=== PATIENT | male | born 1930 | race Caucasian/White ===

== ENCOUNTER 2017-02-20 23:33 | Emergency (ER) | payer OTHER, MEDICARE ==
--- NOTE | 2017-02-21 00:43 | ER Document Report ---
ED Fall - General Chief Complaint: Fall Stated Complaint: FALL, UNK INJURY Time Seen by Provider: 02/21/17 00:12 Mode of Arrival: Stretcher Information source: Outside Facility Records TRAVEL OUTSIDE OF THE [place] IN LAST 30 DAYS: No - HPI Patient complains to provider of: Fall from wheelchair Occurred: Just prior to arrival Where: Group Home Context: Slipped Associated symptoms: None Location of injury/pain: Buttocks Quality of pain: No pain Notes: Patient is an 87-year-old male sent from the local care home for complaints from slip and fall from wheelchair onto buttocks, staff from the care home report there was no head injury, no loss of consciousness, patient has a history of dementia and cannot provide any further information but denies any non-my evaluation - Related data Allergies/Adverse Reactions: No Known Allergies Allergy (Verified 04/05/16 12:49) Past Medical History - General Information source: Patient, Outside Facility Records - Social History Smoking Status: Unknown if Ever Smoked Chew tobacco use (# tins/day): No Frequency of alcohol use: None Drug Abuse: None Family History: CAD - Past Medical History Cardiac Medical History: Reports: Hx Atrial Fibrillation, Hx Heart Attack, Hx Hypercholesterolemia, Hx Hypertension Denies: Hx Coronary Artery Disease Pulmonary Medical History: Reports: Hx Asthma, Hx COPD Denies: Hx Bronchitis, Hx Pneumonia Neurological Medical History: Denies: Hx Cerebrovascular Accident, Hx Seizures GI Medical History: Reports: Hx Gastroesophageal Reflux Disease Musculoskeltal Medical History: Reports Hx Arthritis Psychiatric Medical History: Reports: Hx Dementia Denies: Hx Depression Past Surgical History: Reports: Hx Abdominal Surgery - STENT ABD ANURYSM, Hx Vascular Surgery - Abdominal aortic aneurysm endovascular repair - Immunizations Hx Diphtheria, Pertussis, Tetanus Vaccination: Yes Hx Pneumococcal Vaccination: 07/01/12 Review of Systems - Review of Systems Constitutional: No symptoms reported EENT: No symptoms reported Cardiovascular: No symptoms reported Respiratory: No symptoms reported Gastrointestinal: No symptoms reported Genitourinary: No symptoms reported Male Genitourinary: No symptoms reported Musculoskeletal: See HPI Skin: No symptoms reported Hematologic/Lymphatic: No symptoms reported Neurological/Psychological: No symptoms reported -: Yes All other systems reviewed and negative Physical Exam - Vital signs Vitals: Temp Pulse BP Pulse Ox 98.4 F 51 L 122/58 L 96 02/20/17 23:41 02/20/17 23:41 02/20/17 23:41 02/20/17 23:41 - General General appearance: Alert In distress: None - HEENT Head: Normocephalic, Atraumatic Eyes: Normal Conjunctiva: Normal Extraocular movements intact: Yes Eyelashes: Normal Pupils: PERRL Mucous membranes: Dry Pharynx: Normal Neck: Normal - Respiratory Respiratory status: No respiratory distress Chest status: Nontender Breath sounds: Normal Chest palpation: Normal - Cardiovascular Rhythm: Regular Heart sounds: Normal auscultation Murmur: No - Abdominal Inspection: Normal Distension: No distension Bowel sounds: Normal Tenderness: Nontender Organomegaly: No organomegaly - Back Back: Normal, Nontender. No: Deformity/step-off, Wounds - Extremities General upper extremity: Normal inspection General lower extremity: Other - Contracted - Neurological Cognition: Confused [place] Coma Scale Eye Opening: To Voice Tu Coma Scale Verbal: Confused Tu Coma Scale Motor: Obeys Commands [place] Coma Scale Total: 13 - Skin Skin Temperature: Warm Skin Moisture: Dry Skin Color: Normal Course - Re-evaluation Re-evalutation: 02/21/17 00:43 No evidence of trauma on physical exam or imaging, patient discharged back to care home without incident 02/21/17 01:42 - Vital Signs Vital signs: Temp Pulse Resp BP Pulse Ox 98.4 F 51 L 122/58 L 96 02/21/17 01:10 02/20/17 23:41 02/20/17 23:41 02/21/17 01:10 - Diagnostic Test Radiology reviewed: Image reviewed, Reports reviewed Discharge - Discharge Clinical Impression: Fall from wheelchair Qualifiers: Encounter type: initial encounter Qualified Code(s): W05.0XXA - Fall from non- moving wheelchair, initial encounter Condition: Stable Disposition: HOME, SELF-CARE Instructions: Contusion ([facility]) Additional Instructions: Follow up with your primary care provider in one to 2 days. Return to the emergency room immediately if symptoms worsen or any additional concerns.
--- NOTE | 2017-02-21 01:18 | RADIOLOGY REPORT (SQ) ---
EXAM DESCRIPTION: SACRUM AND COCCYX COMPLETED DATE/TIME: 02/21/2017 12:35 am REASON FOR STUDY: fall COMPARISON: CR, L-spine, 04/08/2016 NUMBER OF VIEWS: Three views. TECHNIQUE: AP, lateral, and tilt views of the sacrum and coccyx. LIMITATIONS: None. FINDINGS: MINERALIZATION: Osteopenia. BONES: No acute fracture or dislocation. No worrisome bone lesions. SOFT TISSUES: No soft tissue swelling. No foreign body. OTHER: Surgical clips of the pelvis. Suture material of the right paracentral pelvis. Aorto bi-rolando c graft material measures 3.9 cm diameter on the left and 1.8 cm diameter on the right, stable compar ed with prior exam, 04/08/2016. IMPRESSION: No acute defect. TECHNICAL DOCUMENTATION: JOB ID: [id number] [employer]- All Rights Reserved
[2017-02-21 01:56] VITALS: BP 106/66
== END 2017-02-21 01:57 | disposition home or self-care (01) ==
LOC: ER 23:33
DX: Z04.3 Encounter for examination and observation following other accident (principal); W05.0XXA Fall from non-moving wheelchair, initial encounter; Y92.129 Unspecified place in nursing home as the place of occurrence of the external cause; F03.90 Unspecified dementia, unspecified severity, without behavioral disturbance, psychotic disturbance, mood disturbance, and anxiety; I25.2 Old myocardial infarction; I10 Essential (primary) hypertension; J44.9 Chronic obstructive pulmonary disease, unspecified
CPT/HCPCS: 72220; 99284

== ENCOUNTER 2017-07-07 12:09 | Emergency (ER) | payer OTHER, MEDICARE ==
[2017-07-08 03:06] LABS: ABSOLUTE EOSINOPHILS # (AUTO) 0.3 10^3/uL (0.0-0.6); ABSOLUTE MONOCYTES (AUTO) 0.4 10^3/uL (0.1-1.4); ABSOLUTE NEUT (AUTO) 5.6 10^3/uL (1.7-8.2); BASOPHILS % (AUTO) 0.5 % (0-2); EOSINOPHILS % (AUTO) 3.9 % (0-6); HEMATOCRIT 34.3 % (37.9-51.0); LYMPHOCYTES % (AUTO) 13.8 % (13-45); MEAN CORPUSCULAR HEMOGLOBIN 31.9 pg (27.0-33.4); MEAN CORPUSCULAR VOLUME 100 fl (80-97); PLATELET COUNT 105 10^3/uL (150-450); RED BLOOD COUNT 3.44 10^6/uL (4.35-5.55); RED CELL DISTRIBUTION WIDTH 15.7 % (11.5-14.0); SEGMENTED NEUTROPHILS % (AUTO) 75.8 % (42-78); TOTAL CELLS COUNTED % (AUTO) 100 %; WHITE BLOOD COUNT 7.4 10^3/uL (4.0-10.5)
[2017-07-08 03:48] LABS: APPEARANCE,URINE CLEAR; BILIRUBIN,URINE NEGATIVE (NEGATIVE); COLOR,URINE YELLOW; GLUCOSE, URINE NEGATIVE (NEGATIVE); KETONES,URINE NEGATIVE (NEGATIVE); LEUKOCYTE ESTERASE,URINE NEGATIVE (NEGATIVE); NITRITE,URINE NEGATIVE (NEGATIVE); PROTEIN,URINE NEGATIVE (NEGATIVE); URINE SPECIFIC GRAVITY 1.009; UROBILINOGEN,URINE NEGATIVE mg/dL (<2.0)
--- NOTE | 2017-07-08 09:48 | RADIOLOGY REPORT (SQ) ---
EXAM DESCRIPTION: CT ABD/PELVIS NO ORAL OR IV COMPLETED DATE/TIME: 07/08/2017 1:30 am REASON FOR STUDY: ABD PAIN COMPARISON: None. TECHNIQUE: CT scan of the abdomen and pelvis performed without intravenous or oral contrast. Images reviewed with lung, soft tissue, and bone windows. Reconstructed coronal and sagittal MPR images revi ewed. All images stored on PACS. All CT scanners at this facility use dose modulation, iterative reconstruction, and/or weight based d osing when appropriate to reduce radiation dose to as low as reasonably achievable (ALARA). [facility]: Dose Right [facility]: CareDose [facility]: Dose Right [facility]: Teradose 4D [facility]: [employer] RADIATION DOSE: mGy. LIMITATIONS: None. FINDINGS: LOWER CHEST: Calcified granuloma left lower lobe. No significant findings. No nodules or infiltrates. NON-CONTRASTED LIVER, SPLEEN, ADRENALS: Evaluation limited by lack of IV contrast. No identified sign ificant masses. Probable subcentimeter simple cyst right hepatic lobe series 3, image 13. PANCREAS: No masses. No peripancreatic inflammatory changes. GALLBLADDER: No identified stones by CT criteria. No inflammatory changes to suggest cholecystitis. RIGHT KIDNEY AND URETER: Multiple Well circumscribed low density masses statistically most likely to be cyst(s). Assessment limited by lack of iv contrast. No significant calcifications. No hydronep hrosis or hydroureter. LEFT KIDNEY AND URETER: Multiple Well circumscribed low density masses statistically most likely to b e cyst(s). Assessment limited by lack of iv contrast. No significant calcifications. No hydroneph rosis or hydroureter. AORTA AND RETROPERITONEUM: The patient is status post endograft repair of the infrarenal abdominal ao rta with graft extending into the right and left common iliac arteries. False lumen of the abdominal aorta measures 9.0 x 8.1 cm. The false lumen of the right common iliac artery measures 4.8 cm. No appreciable false lumen of the left common iliac artery. No surrounding hematoma. No retroperitonea l lymphadenopathy. Vascular coil a soles also seen medial to the right common iliac artery which may be within the internal iliac artery. BOWEL AND PERITONEAL CAVITY: Diverticulosis. No obvious masses or inflammatory changes. No free flui d. APPENDIX: Normal. PELVIS, BLADDER, AND ABDOMINAL WALL:No abnormal masses. No free fluid. Bladder demonstrates diffuse diverticular change compatible with chronic urinary stasis/outlet obstruction. The prostate is enlar ged. . BONES: Degenerative change without fracture or suspicious osseous lesion. OTHER: No other significant finding. IMPRESSION: NO DEFINITE ACUTE FINDINGS SEEN ON THIS NONCONTRAST CT OF THE ABDOMEN AND PELVIS. NO UR INARY TRACT STONES OR HYDRONEPHROSIS. 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 NO EVIDENCE OF IMPENDING RUPTURE HOWEVER RECOMMEND COMPARIS ON TO PRIOR IMAGING TO ASSESS FOR INTERVAL CHANGE THIGH WITH TO SUGGEST LEAK. DIVERTICULAR CHANGE INVOLVING THE BLADDER IN THE SETTING OF ENLARGED PROSTATE PRESUMABLY RELATED TO C HRONIC URINARY STASIS/OUTLET OBSTRUCTION. CORRELATE WITH URINARY OUTPUT. DIVERTICULOSIS WITHOUT DIVERTICULITIS. ADDITIONAL CHRONIC CHANGES ABOVE. COMMENT: Quality ID # [id number]: Final reports with documentation of one or more dose reduction techniques (e.g., Automated exposure control, adjustment of the mA and/or kV according to patient size, use of iterative reconstruction technique) TECHNICAL DOCUMENTATION: JOB ID: [id number] [employer]- All Rights Reserved
--- NOTE | 2017-07-08 09:52 | RADIOLOGY REPORT (SQ) ---
EXAM DESCRIPTION: CHEST PA/LAT COMPLETED DATE/TIME: 07/08/2017 1:18 am REASON FOR STUDY: COUGH COMPARISON: None. TECHNIQUE: Frontal and lateral radiographic views of the chest acquired. NUMBER OF VIEWS: Two view. LIMITATIONS: None. FINDINGS: LUNGS AND PLEURA: The lungs are hyperinflated. Calcified granuloma left lower lobe. No evidence of consolidating infiltrate , pleural effusion , or pneumothorax. MEDIASTINUM AND HILAR STRUCTURES: No masses or contour abnormalities. HEART AND VASCULATURE: Heart normal size. No evidence for failure. BONY STRUCTURES: No acute findings. HARDWARE: None. OTHER: No other significant finding. IMPRESSION: NO ACUTE CARDIOPULMONARY PROCESS. CHRONIC CHANGES ABOVE. TECHNICAL DOCUMENTATION: JOB ID: [id number]
[2017-07-08 11:18] LABS: BLOOD UREA NITROGEN 112 mg/dL (7-20); GLUCOSE 159 mg/dL (75-110)
[2017-07-08 11:19] LABS: ALANINE AMINOTRANSFERASE 35 U/L (21-72); ALBUMIN 4.4 g/dL (3.5-5.0); ALKALINE PHOSPHATASE 110 U/L (38-126); ANION GAP 17 (5-19); ASPARTATE AMINO TRANSFERASE 38 U/L (17-59); BILIRUBIN,TOTAL 0.3 mg/dL (0.2-1.3); CARBON DIOXIDE 20 mmol/L (22-30); CHLORIDE 108 mmol/L (98-107); POTASSIUM 5.2 mmol/L (3.6-5.0); SODIUM 144.9 mmol/L (137-145)
[2017-07-08 11:20] LABS: BILIRUBIN,DIRECT 0.3 mg/dL (0.0-0.4); TOTAL PROTEIN 8.8 g/dL (6.3-8.2)
== END 2017-07-07 17:37 | disposition home or self-care (01) ==
LOC: ER 12:09
DX: M54.5 Low back pain (principal); M53.3 Sacrococcygeal disorders, not elsewhere classified; M54.9 Dorsalgia, unspecified; F03.90 Unspecified dementia, unspecified severity, without behavioral disturbance, psychotic disturbance, mood disturbance, and anxiety
CPT/HCPCS: 36415; 71046; 74176; 80053; 81001; 85025; 99283

== ENCOUNTER 2017-08-16 11:09 | Emergency (ER) | payer MEDICARE ==
--- NOTE | 2017-08-16 11:50 | ER Document Report ---
ED General - General Mode of Arrival: Ambulatory Information source: Patient TRAVEL OUTSIDE OF THE [place] IN LAST 30 DAYS: No <MAHESH HAJI - Last Filed: 08/16/17 15:54> <FARIDEH CHAVEZ - Last Filed: 08/16/17 15:55> - General Chief Complaint: Skin Problem Stated Complaint: SKIN CONCERN Time Seen by Provider: 08/16/17 11:35 Notes: Patient is a 87-year-old male with a history of A. fib, CHF, OR, aneurysms, and strokes presents to the emergency department accompanied by his son complaining of a sore on his lower abdomen onset 1 week ago. Son states that the sore started out as a small lump which has increased in size and began to bleed yesterday. Son states the patient also complains of dizziness when going from supine to sitting up. Son denies any shortness of breath. Son further expressed concern stating the patient has had a 10 pound weight gain in the last 2-3 weeks. Upon arrival to the emergency department, the patients Sp02 was 73%. (MAHESH HAJI) - Related Data Allergies/Adverse Reactions: No Known Allergies Allergy (Verified 08/16/17 11:09) Past Medical History - General Information source: Relative - Social History Smoking Status: Unknown if Ever Smoked Family History: CAD - Past Medical History Cardiac Medical History: Reports: Hx Atrial Fibrillation, Hx Heart Attack, Hx Hypercholesterolemia, Hx Hypertension Pulmonary Medical History: Reports: Hx Asthma, Hx COPD GI Medical History: Reports: Hx Gastroesophageal Reflux Disease Musculoskeltal Medical History: Reports Hx Arthritis Psychiatric Medical History: Reports: Hx Dementia Past Surgical History: Reports: Hx Abdominal Surgery - STENT ABD ANURYSM, Hx Vascular Surgery - Abdominal aortic aneurysm endovascular repair - Immunizations Hx Diphtheria, Pertussis, Tetanus Vaccination: Yes Hx Pneumococcal Vaccination: 07/01/12 <MAHESH HAJI - Last Filed: 08/16/17 15:54> Review of Systems - Review of Systems Constitutional: No symptoms reported EENT: No symptoms reported Cardiovascular: See HPI, Dizziness Respiratory: No symptoms reported Gastrointestinal: No symptoms reported Genitourinary: No symptoms reported Male Genitourinary: No symptoms reported Musculoskeletal: No symptoms reported Skin: See HPI Hematologic/Lymphatic: No symptoms reported Neurological/Psychological: No symptoms reported -: Yes All other systems reviewed and negative <MAHESH HAJI - Last Filed: 08/16/17 15:54> Physical Exam <MAHESH HAJI - Last Filed: 08/16/17 15:54> <FARIDEH CHAVEZ - Last Filed: 08/16/17 15:55> - Vital signs Vitals: Temp Pulse Resp BP Pulse Ox 97.8 F 106 H 20 136/68 H 73 L 08/16/17 11:21 08/16/17 11:21 08/16/17 11:21 08/16/17 11:21 08/16/17 11:21 - Notes Notes: GENERAL: Alert, interacts well. No acute distress. HEAD: Normocephalic, atraumatic. EYES: Pupils equal, round, and reactive to light. Extraocular movements intact. ENT: Oral mucosa moist, tongue midline. NECK: Full range of motion. Supple. Trachea midline. LUNGS: Clear to auscultation bilaterally, no wheezes or rale, rhonchi on the right. No respiratory distress. HEART: Regular rate and rhythm. No murmurs, gallops, or rubs. ABDOMEN: Soft, non-tender. Non-distended. Bowel sounds present in all 4 quadrants. EXTREMITIES: Moves all 4 extremities spontaneously. No edema, radial and dorsalis pedis pulses 2/4 bilaterally. No cyanosis. NEUROLOGICAL: Alert, pleasant, at baseline orientation. Normal speech. PSYCH: Normal affect, normal mood. SKIN: Warm, dry, normal turgor. Abdominal LLQ contains a superficial skin abscess which is tender to palpation, some exudate, warm to touch, minimal amount of blood, some skin break down. (MAHESH HAJI) Course - Laboratory Result Diagrams: 08/16/17 11:54 08/16/17 11:54 <MAHESH HAJI - Last Filed: 08/16/17 15:54> - Laboratory Result Diagrams: 08/16/17 11:54 08/16/17 11:54 <FARIDEH CHAVEZ - Last Filed: 08/16/17 15:55> - Re-evaluation Re-evalutation: 08/16/17 14:15 In triage the patient's oxygen saturation was noted to be 73%. Patient has no complaints of shortness of breath but does have a history of CHF and has gained 10 pounds over the past 3 weeks. When seen in the back with a good waveform with a pulse oximeter on his ear he was 100% on room air. The patient was ambulated and had no difficulty ambulating and no hypoxia. Due to his history of congestive heart failure son requests that we check blood work anyway, given his age and comorbidities this is a reasonable request. CBC shows chronic anemia with hemoglobin 9.8, chronic renal failure with a BUN of 96 and creatinine of 2.95, proBNP is elevated at 6020 however this does not appear to be acute. Chest x-ray shows COPD but no evidence of infiltrates or vascular congestion. Patient does not have any complaints of chest pain or shortness of breath. At this point the patient appears quite stable and our attention was turned to the complaint for which she presented. Abscess was found in the left lower quadrant of the abdomen, this is superficial and does not penetrate the abdominal wall. Area was cleansed, numbed and incised and drained. Some sebum and some pus was obtained. It was explored and loculations were broken up. Dressed with sterile gauze and patient was discharged home with Bactroban and Bactrim. (FARIDEH CHAVEZ) - Vital Signs Vital signs: Temp Pulse Resp BP Pulse Ox 98.1 F 60 16 181/73 H 93 08/16/17 14:55 08/16/17 14:55 08/16/17 14:55 08/16/17 14:55 08/16/17 14:55 - Laboratory Laboratory results interpreted by wa: 08/16/17 08/16/17 08/16/17 11:54 11:54 11:54 RBC 3.02 L Hgb 9.8 L Hct 30.5 L MCV 101 H RDW 16.8 H Plt Count 100 L Lymphocytes % 12.8 L Chloride 108 H BUN 96 H Creatinine 2.95 H Est GFR ( Amer) 24 L Est GFR (Non-Af Amer) 20 L Glucose 137 H NT-Pro-B Natriuret Pep 6020 H Total Protein 8.3 H Procedures - Incision and Drainage Left Lower Abdomen Type: Complex, Single Anesthetic type: 1% Lidocaine mL's of anesthetic: 5 Blade size: 11 I&D procedure: Shurclens applied Incision Method: Incision made by scalpel - Loculations broken up with forceps. Amount/type of drainage: thick, purulent with chunks of sebum <FARIDEH CHAVEZ - Last Filed: 08/16/17 15:55> Discharge <MAHESH HAJI - Last Filed: 08/16/17 15:54> <FARIDEH CHAVEZ - Last Filed: 08/16/17 15:55> - Discharge Clinical Impression: Chronic kidney disease, stage IV (severe), Chronic systolic (congestive) heart failure Skin abscess Qualifiers: Site of cutaneous abscess: trunk Site of cutaneous abscess of trunk: abdominal wall Qualified Code(s): L02.211 - Cutaneous abscess of abdominal wall Condition: Stable Disposition: HOME, SELF-CARE Additional Instructions: Post Incision and Drainage You have had an incision made to allow drainage of an abscess. The incision must remain open so that pus and debris can drain from the wound. Keep a bulky dressing over the area. Replace it if it becomes saturated with blood or pus. You may shower and cleanse the area with gentle soap and warm water two or three times a day. Local warmth may be soothing, and may promote faster healing. Apply antibiotic ointment in the form of the Bactroban that I have prescribed. You may use Epsom salts soaks or compresses twice a day. Reapply the Bactroban afterwards. If the redness around the wound increases please start taking the Bactrim. Otherwise do not take the Bactrim. Return if you develop high fever or chills, or if you note spreading redness, increasing swelling, or increasing tenderness. Prescriptions: Mupirocin [Bactroban 2% Ointment 22 gm] 1 applic TP TID #1 tube Sulfamethoxazole/Trimethoprim [Bactrim Ds Tablet] 1 each PO BID #14 tablet Referrals: PAOLO BENNETT DO [Primary Care Provider] - Follow up in 1 week Scribe Attestation: 08/16/17 15:55 I personally performed the services described in the documentation, reviewed and edited the documentation which was dictated to the scribe in my presence, and it accurately records my words and actions. (FARIDEH CHAVEZ) Scribe Documentation - Scribe Written by Raúlibe:: Damián Choi, 08/16/2017 11:55 acting as scribe for :: Robin <MAHESH HAJI - Last Filed: 08/16/17 15:54>
[2017-08-16] MEDS ORDERED: LIDOCAINE 1% INJ-PF (10 MG/ML) 30 ML SDV INJ ONE (11:53)
--- NOTE | 2017-08-16 13:16 | RADIOLOGY REPORT (SQ) ---
EXAM DESCRIPTION: CHEST PA/LAT COMPLETED DATE/TIME: 08/16/2017 1:01 pm REASON FOR STUDY: SOB, weight gain, hypoxia, CHF COMPARISON: 07/07/2017 EXAM PARAMETERS: NUMBER OF VIEWS: two views TECHNIQUE: Digital Frontal and Lateral radiographic views of the chest acquired. RADIATION DOSE: NA LIMITATIONS: none FINDINGS: LUNGS AND PLEURA: No developing pulmonary consolidation. Overexpansion of the lung valdez is noted, possible COPD. Calcified granuloma left base stable. MEDIASTINUM AND HILAR STRUCTURES: No masses or contour abnormalities. HEART AND VASCULAR STRUCTURES: Heart normal size. No evidence for failure. BONES: No acute findings. HARDWARE: None in the chest. OTHER: No other significant finding. IMPRESSION: Likely COPD. No acute infiltrates. TECHNICAL DOCUMENTATION: JOB ID: [id number] [employer]- All Rights Reserved
[2017-08-16 13:29] LABS: ABSOLUTE EOSINOPHILS # (AUTO) 0.3 10^3/uL (0.0-0.6); ABSOLUTE LYMPHOCYTES (AUTO) 0.9 10^3/uL (0.5-4.7); ABSOLUTE MONOCYTES (AUTO) 0.5 10^3/uL (0.1-1.4); ABSOLUTE NEUT (AUTO) 5.1 10^3/uL (1.7-8.2); BASOPHILS % (AUTO) 0.6 % (0-2); EOSINOPHILS % (AUTO) 4.8 % (0-6); HEMATOCRIT 30.5 % (37.9-51.0); HEMOGLOBIN 9.8 g/dL (13.5-17.0); LYMPHOCYTES % (AUTO) 12.8 % (13-45); MEAN CORPUSCULAR HEMOGLOBIN 32.6 pg (27.0-33.4); MEAN CORPUSCULAR HGB CONC 32.3 g/dL (32.0-36.0); MEAN CORPUSCULAR VOLUME 101 fl (80-97); MONOCYTES % (AUTO) 7.4 % (3-13); PLATELET COUNT 100 10^3/uL (150-450); RED BLOOD COUNT 3.02 10^6/uL (4.35-5.55); RED CELL DISTRIBUTION WIDTH 16.8 % (11.5-14.0); SEGMENTED NEUTROPHILS % (AUTO) 74.4 % (42-78); TOTAL CELLS COUNTED % (AUTO) 100 %; WHITE BLOOD COUNT 6.8 10^3/uL (4.0-10.5)
[2017-08-16 13:39] LABS: ALANINE AMINOTRANSFERASE 21 U/L (21-72); ALBUMIN 3.9 g/dL (3.5-5.0); ALKALINE PHOSPHATASE 83 U/L (38-126); ANION GAP 13 (5-19); ASPARTATE AMINO TRANSFERASE 27 U/L (17-59); BILIRUBIN,DIRECT 0.4 mg/dL (0.0-0.4); BILIRUBIN,TOTAL 0.4 mg/dL (0.2-1.3); BLOOD UREA NITROGEN 96 mg/dL (7-20); CALCIUM 9.7 mg/dL (8.4-10.2); CARBON DIOXIDE 24 mmol/L (22-30); CHLORIDE 108 mmol/L (98-107); GLUCOSE 137 mg/dL (75-110); POTASSIUM 4.9 mmol/L (3.6-5.0); SODIUM 144.6 mmol/L (137-145); TOTAL PROTEIN 8.3 g/dL (6.3-8.2)
[2017-08-16 14:58] VITALS: BP 181/73
== END 2017-08-16 14:53 | disposition home or self-care (01) ==
LOC: ER 11:09
PROC: 0H97XZZ Drainage of Abdomen Skin, External Approach (ICD-10-PCS; principal; 2017-08-16)
DX: L02.211 Cutaneous abscess of abdominal wall (principal); N18.4 Chronic kidney disease, stage 4 (severe); I50.22 Chronic systolic (congestive) heart failure; R42 Dizziness and giddiness; I48.91 Unspecified atrial fibrillation; I25.2 Old myocardial infarction; Z86.73 Personal history of transient ischemic attack (TIA), and cerebral infarction without residual deficits; R63.5 Abnormal weight gain
CPT/HCPCS: 36415; 71046; 80053; 83880; 85025; 99284

== ENCOUNTER 2017-10-28 17:27 | Inpatient (IN) | payer MEDICARE ==
[2017-10-28 18:15] LABS: ABSOLUTE EOSINOPHILS # (AUTO) 0.5 10^3/uL (0.0-0.6); ABSOLUTE LYMPHOCYTES (AUTO) 1.5 10^3/uL (0.5-4.7); ABSOLUTE MONOCYTES (AUTO) 0.9 10^3/uL (0.1-1.4); ABSOLUTE NEUT (AUTO) 5.1 10^3/uL (1.7-8.2); BASOPHILS % (AUTO) 0.5 % (0-2); EOSINOPHILS % (AUTO) 6.1 % (0-6); HEMATOCRIT 27.2 % (37.9-51.0); HEMOGLOBIN 8.6 g/dL (13.5-17.0); LYMPHOCYTES % (AUTO) 18.8 % (13-45); MEAN CORPUSCULAR HEMOGLOBIN 32.1 pg (27.0-33.4); MEAN CORPUSCULAR HGB CONC 31.7 g/dL (32.0-36.0); MEAN CORPUSCULAR VOLUME 101 fl (80-97); MONOCYTES % (AUTO) 10.6 % (3-13); RED BLOOD COUNT 2.68 10^6/uL (4.35-5.55); RED CELL DISTRIBUTION WIDTH 15.6 % (11.5-14.0); TOTAL CELLS COUNTED % (AUTO) 100 %
[2017-10-28 18:34] LABS: ALANINE AMINOTRANSFERASE 28 U/L (21-72); ALKALINE PHOSPHATASE 98 U/L (38-126); ANION GAP 17 (5-19); ASPARTATE AMINO TRANSFERASE 21 U/L (17-59); BILIRUBIN,DIRECT 0.2 mg/dL (0.0-0.4); BILIRUBIN,TOTAL 0.2 mg/dL (0.2-1.3); BLOOD UREA NITROGEN 106 mg/dL (7-20); CALCIUM 9.1 mg/dL (8.4-10.2); CARBON DIOXIDE 22 mmol/L (22-30); CHLORIDE 113 mmol/L (98-107); GLUCOSE 146 mg/dL (75-110); POTASSIUM 5.4 mmol/L (3.6-5.0); SODIUM 151.6 mmol/L (137-145); TOTAL PROTEIN 8.2 g/dL (6.3-8.2)
[2017-10-28 18:40] LABS: PLATELET COUNT 97 10^3/uL (150-450)
--- NOTE | 2017-10-28 18:40 | ER Document Report ---
ED GI Bleed / Rectal Pain - General Mode of Arrival: Medic Information source: Relative TRAVEL OUTSIDE OF THE [place] IN LAST 30 DAYS: No <MAHESH HAJI - Last Filed: 10/28/17 20:42> <WINSTON LEONE - Last Filed: 10/28/17 20:47> - General Chief Complaint: Rectal Bleeding Stated Complaint: RECTAL BLEEDING Time Seen by Provider: 10/28/17 18:17 Notes: Patient is a 87-year-old male with a history of A. fib, advanced dementia,CHF, OR, aneurysms, GI bleeds, COPD and strokes presents to the emergency department accompanied by his son complaining of rectal bleeding onset this morning. Son states he noticed light bleeding this morning which progressively worsened through the day. Son also states the patient has been complaining of general malaise and abdominal pain over the last few days. According to [facility] records, the patient was admitted to the hospital in March 2017 for a GI bleed with a hemoglobin of 6.2. Patient also presented to the emergency department in 2017 and had a hemoglobin of 9.2. Patients PCP is Dr. Washington. Patient is not on any blood thinners. (MAHESH HAJI) - Related Data Allergies/Adverse Reactions: No Known Allergies Allergy (Verified 10/28/17 17:50) Past Medical History - General Information source: Relative - Social History Smoking Status: Unknown if Ever Smoked Frequency of alcohol use: None Drug Abuse: None Family History: CAD Patient has suicidal ideation: No Patient has homicidal ideation: No - Past Medical History Cardiac Medical History: Reports: Hx Atrial Fibrillation, Hx Heart Attack, Hx Hypercholesterolemia, Hx Hypertension Pulmonary Medical History: Reports: Hx Asthma, Hx COPD GI Medical History: Reports: Hx Gastroesophageal Reflux Disease Musculoskeltal Medical History: Reports Hx Arthritis Psychiatric Medical History: Reports: Hx Dementia Past Surgical History: Reports: Hx Abdominal Surgery - STENT ABD ANURYSM, Hx Vascular Surgery - Abdominal aortic aneurysm endovascular repair - Immunizations Hx Diphtheria, Pertussis, Tetanus Vaccination: Yes Hx Pneumococcal Vaccination: 07/01/12 <MAHESH HAJI - Last Filed: 10/28/17 20:42> Review of Systems - Review of Systems Constitutional: See HPI, Malaise EENT: No symptoms reported Cardiovascular: No symptoms reported Respiratory: No symptoms reported Gastrointestinal: See HPI, Abdominal pain, Rectal bleeding Genitourinary: No symptoms reported Male Genitourinary: No symptoms reported Musculoskeletal: No symptoms reported Skin: No symptoms reported Hematologic/Lymphatic: No symptoms reported Neurological/Psychological: No symptoms reported -: Yes All other systems reviewed and negative <MAHESH HAJI - Last Filed: 10/28/17 20:42> Physical Exam <MHAESH HAJI - Last Filed: 10/28/17 20:42> <WINSTON LEONE - Last Filed: 10/28/17 20:47> - Vital signs Vitals: Resp Pulse Ox 14 95 10/28/17 17:49 10/28/17 17:49 - Notes Notes: GENERAL: Alert, interacts well. No acute distress. HEAD: Normocephalic, atraumatic. EYES: Pupils equal, round, and reactive to light. Extraocular movements intact. Conjunctiva pale. ENT: Oral mucosa moist, tongue midline. NECK: Full range of motion. Supple. Trachea midline. ABDOMEN: Soft, non-tender. Non-distended. Bowel sounds present in all 4 quadrants. EXTREMITIES: Moves all 4 extremities spontaneously. No edema, radial and dorsalis pedis pulses 2/4 bilaterally. No cyanosis. NEUROLOGICAL: At baseline confusion. PSYCH: Normal affect, normal mood. SKIN: Pale. Warm, dry, normal turgor. No rashes or lesions noted. (MAHESH HAJI) Course - Laboratory Result Diagrams: 10/28/17 17:43 10/28/17 17:43 <MAHESH HAJI - Last Filed: 10/28/17 20:42> - Laboratory Result Diagrams: 10/28/17 17:43 10/28/17 17:43 <WINSTON LEONE - Last Filed: 10/28/17 20:47> - Re-evaluation Re-evalutation: 10/28/17 20:20 Patient is an 87-year-old male who presents after having bright red blood from rectum at home. Hemoccult here is negative which is difficult to believe and will be repeated. Patient is more anemic than usual but not quite to the point of transfusion. He is stable vitals with heart rate of 16 and blood pressure 130s over [address] showing that his aorta is larger than usual and possibly he has an endovascular leak. This does not make sense with his presentation of diarrhea as if the patient were to have a fistula he should be having brisk bright red bleeding and less stable vital signs. However, due to his multiple bowel movements today and hemoglobin of 8.6, son would like him to stay overnight. We have discussed letting the patient go home as he would not have any procedures, but the son would like him to stay overnight because of the multiple bloody bowel movements today. Patient has been typed and screened if he were to need a transfusion. Patient is DNR. Son does not want him to have any interventions. We have specifically discussed that he would not want him to have an endoscopy, colonoscopy, or re-grafting/ stenting of his aorta. The hospitalist has been contacted for admission. 10/28/17 20:46 Patient will be admitted to the medical service. Vitals are stable at the time of admission. (WINSTON LEONE) - Vital Signs Vital signs: Temp Pulse Resp BP Pulse Ox 98.0 F 14 164/60 H 99 10/28/17 17:50 10/28/17 19:02 10/28/17 19:02 10/28/17 19:02 - Laboratory Laboratory results interpreted by me: 10/28/17 10/28/17 10/28/17 17:43 17:43 17:43 RBC 2.68 L Hgb 8.6 L Hct 27.2 L MCV 101 H MCHC 31.7 L RDW 15.6 H Plt Count 97 L Eosinophils % 6.1 H PT 16.1 H Sodium 151.6 H Potassium 5.4 H Chloride 113 H BUN 106 H Creatinine 3.24 H Est GFR ( Amer) 22 L Est GFR (Non-Af Amer) 18 L Glucose 146 H Discharge <MAHESH HAJI - Last Filed: 10/28/17 20:42> - Discharge Admitting Provider: [facility] Unit Admitted: Medical Floor <WINSTON LEONE - Last Filed: 10/28/17 20:47> - Discharge Clinical Impression: GI bleed Qualifiers: GI bleed type/associated pathology: unspecified gastrointestinal hemorrhage type Qualified Code(s): K92.2 - Gastrointestinal hemorrhage, unspecified Anemia Qualifiers: Anemia type: unspecified type Qualified Code(s): D64.9 - Anemia, unspecified Condition: Stable Disposition: ADMITTED INPATIENT Referrals: PAOLO WASHINGTON DO [Primary Care Provider] - Follow up as needed Scribe Attestation: 10/28/17 20:47 I personally performed the services described in the documentation, reviewed and edited the documentation which was dictated to the scribe in my presence, and it accurately records my words and actions. (WINSTON LEONE) Scribe Documentation - Scribe Written by Scribe:: Damián Choi, 10/28/2017 19:14 acting as scribe for :: Harpal <MAHESH HAJI - Last Filed: 10/28/17 20:42>
[2017-10-28 18:46] LABS: INTERNATIONAL RATION (INR) 1.23; PROTHROMBIN TIME 16.1 SEC (11.4-15.4)
[2017-10-28] MEDS ORDERED: 1/2 NORMAL SALINE 1,000 ML IV ONE (19:12)
--- NOTE | 2017-10-28 20:22 | RADIOLOGY REPORT (SQ) ---
EXAM DESCRIPTION: CT ABD/PELVIS NO ORAL OR IV COMPLETED DATE/TIME: 10/28/2017 7:50 pm REASON FOR STUDY: Nausea, pain, GI bleed COMPARISON: 07/07/2017 TECHNIQUE: CT scan of the abdomen and pelvis performed without intravenous or oral contrast. Images reviewed with lung, soft tissue, and bone windows. Reconstructed coronal and sagittal MPR images revi ewed. All images stored on PACS. All CT scanners at this facility use dose modulation, iterative reconstruction, and/or weight based d osing when appropriate to reduce radiation dose to as low as reasonably achievable (ALARA). [facility]: Dose Right [facility]: CareDose [facility]: Dose Right [facility]: Teradose 4D [facility]: Smart Technologies RADIATION DOSE: CT Rad equipment meets quality standard of care and radiation dose reduction techniq ues were employed. CTDIvol: 5.3 mGy. DLP: 294 mGy-cm.mGy. LIMITATIONS: None. FINDINGS: LOWER CHEST: No significant findings. No nodules or infiltrates. NON-CONTRASTED LIVER, SPLEEN, ADRENALS: Low-density lesion in the liver unchanged. PANCREAS: No masses. No peripancreatic inflammatory changes. GALLBLADDER: No identified stones by CT criteria. No inflammatory changes to suggest cholecystitis. RIGHT KIDNEY AND URETER: Multiple stable masses presumed to be cysts. No significant calcifications . No hydronephrosis or hydroureter. LEFT KIDNEY AND URETER: Multiple stable masses presumed to be cysts. No significant calcifications. No hydronephrosis or hydroureter. 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 . The elim ira aorta measures nearly 9 x 10 cm. Is minimally larger than on the previous study. This is worrisome for possible endoleak. BOWEL AND PERITONEAL CAVITY: Diverticulosis without diverticulitis. APPENDIX: Normal. PELVIS, BLADDER, AND ABDOMINAL WALL:No abnormal masses. No free fluid. Bladder normal. BONES: No significant findings. OTHER: No other significant finding. IMPRESSION: Aortofemoral endograft. [place] aorta measures minimally larger than on previous raising the question of endovascular leak. COMMENT: Pertinent findings on the imaging study reported as a CRITICAL RESULT to WINSTON Martinez DO at20:15 on 10/28/2017. Category of Critical Result: Possible leaking aneurysm Quality ID # [id number]: Final reports with documentation of one or more dose reduction techniques (e.g., Au tomated exposure control, adjustment of the mA and/or kV according to patient size, use of iterative reconstruction technique) TECHNICAL DOCUMENTATION: JOB ID: [id number] [employer]- All Rights Reserved Reading location - IP/workstation name: [email or web address]
[2017-10-28] MEDS ORDERED: PANTOPRAZOLE SODIUM 40 MG VIAL IV ONE (20:44)
[2017-10-28] MEDS ORDERED: ACETAMINOPHEN 325 MG TABLET PO PRN (20:45)
[2017-10-28] MEDS ORDERED: IPRATROPIUM/ALBUTEROL 0.5-2.5 MG/3 ML AMPUL NEB PRN (20:45)
[2017-10-28] MEDS ORDERED: MAGNESIUM HYDROXIDE SUSP 30 ML UDCUP PO PRN (20:45)
[2017-10-28] MEDS ORDERED: LACTULOSE SYRUP 20 GM/30 ML UDCUP PO ONE (23:19)
[2017-10-29] MEDS: SUCRALFATE SUSP 1 GM/10 ML UDCUP PO SCH ×4 (00:04→18:00)
--- NOTE | 2017-10-29 05:48 | PDOC H&P ---
History of Present Illness Admission Date/PCP: 10/28/17 21:05 PAOLO BENNETT DO Patient complains of: Rectal bleeding History of Present Illness: BRUCE STOVER is a 87 year old male with a history of GI bleed, atrial fibrillation, congestive heart failure ejection fraction 20%, coronary artery disease abdominal aortic aneurysm, COPD and CVA with advanced dementia. He presents with 12 hours of abdominal pain and blood per rectum and brought to the emergency room by his son for evaluation. He is found to have heme positive stool and anemia with hemoglobin of 8.6. He is started on IV Protonix and referred to the hospitalist for admission. The patient son at bedside verifies CODE STATUS is DNR and conservative management only. No endoscopy or colonoscopy given patient's wishes. The patient is awake and alert oriented 1 but and an unhelpful historian. Past Medical History Cardiac Medical History: Reports: Atrial Fibrillation, Myocardial Infarction, Hyperlipidema, Hypertension Denies: Coronary Artery Disease Pulmonary Medical History: Reports: Asthma, Chronic Obstructive Pulmonary Disease (COPD) Denies: Bronchitis, Pneumonia Neurological Medical History: Denies: Seizures GI Medical History: Reports: Gastroesophageal Reflux Disease, Other - GI bleed Musculoskeltal Medical History: Reports: Arthritis Psychiatric Medical History: Reports: Dementia Denies: Depression Hematology: Denies: Anemia Past Surgical History Past Surgical History: Reports: Vascular Surgery - Abdominal aortic aneurysm endovascular repair Social History Information Source: Relative, POA - Power of Engineer Specialist, [facility] Records Lives with: Family Smoking Status: Unknown if Ever Smoked Frequency of Alcohol Use: None Hx Recreational Drug Use: No Drugs: None Hx Prescription Drug Abuse: No - Advance Directive Resuscitation Status: Do Not Resuscitate Family History Family History: CAD Parental Family History Reviewed: Yes Children Family History Reviewed: Yes Sibling(s) Family History Reviewed.: Yes Medication/Allergy Home Medications: Esomeprazole Magnesium [Nexium] 40 mg PO DAILY 06/11/13 Sertraline HCl 150 mg PO DAILY 06/11/13 Atorvastatin Calcium [Lipitor 80 mg Tablet] 80 mg PO DAILY 06/04/15 Donepezil HCl 23 mg PO QPM 06/04/15 Memantine HCl 10 mg PO BID 06/04/15 Furosemide [Lasix 40 mg Tablet] 40 mg PO QAM #30 tablet 04/09/16 Metoprolol Succinate [Toprol Xl 25 mg Tab.sr] 25 mg PO DAILY #30 tab.sr.24h 04/15 Glucosam/Chondr/Collagn/Hyalur [Glucosamine & Chondroitin Cap] 2 tab PO DAILY Hydralazine HCl [Apresoline 10 mg Tablet] 10 mg PO Q12 10/28/17 Iron 65 mg PO DAILY 10/28/17 Loratadine [Claritin] 10 mg PO DAILY 10/28/17 Mirtazapine [Remeron] 7.5 mg PO DAILY 10/28/17 Quetiapine Fumarate [Seroquel] 50 mg PO QHS 10/28/17 Allergies/Adverse Reactions: No Known Allergies Allergy (Verified 10/28/17 17:50) Review of Systems ROS unobtainable: Due to mental status Physical Exam Vital Signs: Temp Pulse Resp BP Pulse Ox 97.9 F 62 22 H 144/59 H 96 10/29/17 04:15 10/29/17 04:15 10/29/17 04:15 10/29/17 04:15 10/29/17 04:15 Intake & Output 10/27/17 10/28/17 10/29/17 11:59 11:59 11:59 Intake Total 500 Balance 500 Weight 65.3 kg General appearance: PRESENT: cooperative, mild distress, well-developed, well- nourished Head exam: PRESENT: atraumatic, normocephalic Eye exam: PRESENT: conjunctiva pale, EOMI, PERRLA. ABSENT: scleral icterus Ear exam: PRESENT: normal external ear exam Mouth exam: PRESENT: moist, tongue midline Neck exam: ABSENT: carotid bruit, JVD, lymphadenopathy, thyromegaly Respiratory exam: PRESENT: clear to auscultation patrice, crackles. ABSENT: rales, rhonchi, wheezes Cardiovascular exam: PRESENT: RRR, tachycardia. ABSENT: diastolic murmur, rubs , systolic murmur Pulses: PRESENT: normal dorsalis pedis pul Vascular exam: PRESENT: normal capillary refill GI/Abdominal exam: PRESENT: hyperactive bowel sounds, normal bowel sounds, soft , tenderness - Mild epigastric discomfort no guarding. ABSENT: distended, guarding, mass, organolmegaly, rebound Rectal exam: PRESENT: deferred Extremities exam: PRESENT: full ROM. ABSENT: calf tenderness, clubbing, pedal edema Musculoskeletal exam: PRESENT: other - Global atrophy Neurological exam: PRESENT: alert, awake, oriented to person, oriented to place , oriented to time, oriented to situation, CN II-XII grossly intact. ABSENT: motor sensory deficit Psychiatric exam: PRESENT: appropriate affect, normal mood. ABSENT: homicidal ideation, suicidal ideation Skin exam: PRESENT: dry, intact, warm. ABSENT: cyanosis, rash Results Laboratory Results: 10/28/17 21:52 Stool Occult Blood POSITIVE Impressions: Abdomen/Pelvis CT 10/28/17 18:40 IMPRESSION: Aortofemoral endograft. [place] aorta measures minimally larger than on previous raising the question of endovascular leak. Assessment & Plan - Diagnosis (1) GI bleed Qualifiers: GI bleed type/associated pathology: unspecified gastrointestinal hemorrhage type Qualified Code(s): K92.2 - Gastrointestinal hemorrhage, unspecified Is this a current diagnosis for this admission?: Yes Plan: Given the presence of epigastric pain and elevated BUN over 100 likely upper GI source of bleeding. IV Protonix initiated n.p.o. and supportive measures follow -up CBC, transfuse as needed hemoglobin less than 7 conservative management only (2) Anemia Qualifiers: Anemia type: unspecified type Qualified Code(s): D64.9 - Anemia, unspecified Is this a current diagnosis for this admission?: Yes Plan: Transfuse packed red blood cells as needed hemoglobin less than 7 (3) Acute on chronic systolic CHF (congestive heart failure) Is this a current diagnosis for this admission?: Yes Plan: Secondary to high-output state of anemia. Conservative management transfused packed red blood cells as needed hemoglobin less than 7 (4) Atrial fibrillation Qualifiers: Atrial fibrillation type: paroxysmal Qualified Code(s): I48.0 - Paroxysmal atrial fibrillation Is this a current diagnosis for this admission?: Yes Plan: Rate controlled no anticoagulation secondary to bleeding (5) Dementia Qualifiers: Dementia type: unspecified type Dementia behavioral disturbance: without behavioral disturbance Qualified Code(s): F03.90 - Unspecified dementia without behavioral disturbance Is this a current diagnosis for this admission?: Yes Plan: Supportive care, DNR - Time Time Spent: 50 to 70 Minutes - Inpatient Certification Medical Necessity: Need Close Monitoring Due to Risk of Patient Decompensation
[2017-10-29 06:31] LABS: ABSOLUTE BASOPHILS # (AUTO) 0.1 10^3/uL (0.0-0.2); ABSOLUTE EOSINOPHILS # (AUTO) 0.4 10^3/uL (0.0-0.6); ABSOLUTE LYMPHOCYTES (AUTO) 1.5 10^3/uL (0.5-4.7); ABSOLUTE MONOCYTES (AUTO) 0.8 10^3/uL (0.1-1.4); ABSOLUTE NEUT (AUTO) 5.5 10^3/uL (1.7-8.2); BASOPHILS % (AUTO) 0.6 % (0-2); EOSINOPHILS % (AUTO) 4.3 % (0-6); HEMATOCRIT 22.9 % (37.9-51.0); LYMPHOCYTES % (AUTO) 17.8 % (13-45); MEAN CORPUSCULAR HEMOGLOBIN 32.2 pg (27.0-33.4); MEAN CORPUSCULAR HGB CONC 31.9 g/dL (32.0-36.0); MEAN CORPUSCULAR VOLUME 101 fl (80-97); MONOCYTES % (AUTO) 10.4 % (3-13); RED BLOOD COUNT 2.27 10^6/uL (4.35-5.55); RED CELL DISTRIBUTION WIDTH 15.5 % (11.5-14.0); SEGMENTED NEUTROPHILS % (AUTO) 66.9 % (42-78); TOTAL CELLS COUNTED % (AUTO) 100 %; WHITE BLOOD COUNT 8.2 10^3/uL (4.0-10.5)
[2017-10-29 06:47] LABS: ANION GAP 15 (5-19); BLOOD UREA NITROGEN 106 mg/dL (7-20); CALCIUM 8.8 mg/dL (8.4-10.2); CARBON DIOXIDE 23 mmol/L (22-30); CHLORIDE 110 mmol/L (98-107); GLUCOSE 107 mg/dL (75-110); POTASSIUM 5.1 mmol/L (3.6-5.0); SODIUM 147.5 mmol/L (137-145)
[2017-10-29 07:06] LABS: HEMOGLOBIN 7.3 g/dL (13.5-17.0)
[2017-10-29 07:07] LABS: PLATELET COUNT 77 10^3/uL (150-450)
[2017-10-29] MEDS: DOCUSATE SODIUM 100 MG CAPSULE PO SCH ×2 (09:18→17:51)
--- NOTE | 2017-10-29 10:51 | Physician Advisory Note ---
Physician Advisor ProgressNote .: Pursuant to the plan for Danny Romero, I have reviewed the medical record for this patient. Physician Advisor Statement: Nice documentation of chronic systolic CHF w/EF 20% (also has mod-sev MR, mild- mod AR, & mild pulm HTN), type Afib. - Pt chronically on Lasix & metoprolol, which predispose him to volume depletion and inability to mount a physiologically appropriate tachycardia. Please consider documenting, if you agree: 1. "Anemia of acute blood loss due to LGIB; last Hgbs were 11.0 on 07/07/17, and 9.8 on 08/16/17" 2. "Mild pulmonary HTN" 3. ? "CAN due to , baseline Cr = " (? around 2.0s) 4. "Acute hypernatremia, suspect due to " (intravascular volume depletion?) 5. Clinical findings that support dx of Acute Systolic CHF, or state this dx was ruled out, or "at risk for Ac Syst CHF with transfusion/IVF". 6, "Thrombocytopenia" - & state type/cause if possible 7. Most likely type dementia Status: appropriate for INpt status. Thanks! CK
[2017-10-29] MEDS ORDERED: NORMAL SALINE 250 ML IV PRN ×4 (10:59→17:59)
[2017-10-29 15:41] LABS: APPEARANCE,URINE CLEAR; BILIRUBIN,URINE NEGATIVE (NEGATIVE); COLOR,URINE YELLOW; GLUCOSE, URINE NEGATIVE (NEGATIVE); KETONES,URINE NEGATIVE (NEGATIVE); LEUKOCYTE ESTERASE,URINE NEGATIVE (NEGATIVE); NITRITE,URINE NEGATIVE (NEGATIVE); PROTEIN,URINE NEGATIVE (NEGATIVE); URINE SPECIFIC GRAVITY 1.014; UROBILINOGEN,URINE NEGATIVE mg/dL (<2.0)
[2017-10-29 17:19] LABS: ABSOLUTE EOSINOPHILS # (AUTO) 0.4 10^3/uL (0.0-0.6); ABSOLUTE LYMPHOCYTES (AUTO) 1.1 10^3/uL (0.5-4.7); ABSOLUTE MONOCYTES (AUTO) 0.8 10^3/uL (0.1-1.4); ABSOLUTE NEUT (AUTO) 4.3 10^3/uL (1.7-8.2); BASOPHILS % (AUTO) 0.7 % (0-2); HEMATOCRIT 22.5 % (37.9-51.0); LYMPHOCYTES % (AUTO) 17.1 % (13-45); MEAN CORPUSCULAR HEMOGLOBIN 31.9 pg (27.0-33.4); MEAN CORPUSCULAR HGB CONC 33.1 g/dL (32.0-36.0); MONOCYTES % (AUTO) 11.6 % (3-13); RED BLOOD COUNT 2.34 10^6/uL (4.35-5.55); RED CELL DISTRIBUTION WIDTH 16.4 % (11.5-14.0); SEGMENTED NEUTROPHILS % (AUTO) 64.6 % (42-78); TOTAL CELLS COUNTED % (AUTO) 100 %; WHITE BLOOD COUNT 6.6 10^3/uL (4.0-10.5)
[2017-10-29 17:32] LABS: HEMOGLOBIN 7.5 g/dL (13.5-17.0)
[2017-10-29 17:33] LABS: MEAN CORPUSCULAR VOLUME 96 fl (80-97); PLATELET COUNT 74 10^3/uL (150-450)
[2017-10-29] MEDS ORDERED: FUROSEMIDE INJ/PF 20 MG/2 ML SDV IV PRN (17:59)
[2017-10-29] MEDS: PANTOPRAZOLE SODIUM 40 MG VIAL IV SCH (18:00)
--- NOTE | 2017-10-29 18:07 | PDOC PROGRESS REPORT ---
Subjective Progress Note for:: 10/29/17 Subjective:: No complaints. Family at bedside and his son is concerned about the nature of the bleeding. However he does not want any invasive procedures Review of systems All organ systems evaluated and negative except as in subjective All laboratories and significant diagnostics have been reviewed Reason For Visit: UPPER GI BLEED Physical Exam Vital Signs: Temp Pulse Resp BP Pulse Ox 97.9 F 62 22 H 144/59 H 96 10/29/17 04:15 10/29/17 04:15 10/29/17 04:15 10/29/17 04:15 10/29/17 04:15 Intake & Output 10/28/17 10/29/17 10/30/17 06:59 06:59 06:59 Intake Total 630 Balance 630 Weight 65.3 kg General appearance: PRESENT: cooperative, thin, other - Chronically ill looking Head exam: PRESENT: atraumatic, normocephalic Eye exam: PRESENT: conjunctiva pale, EOMI, PERRLA Ear exam: PRESENT: normal external ear exam Neck exam: PRESENT: full ROM. ABSENT: JVD, lymphadenopathy, tenderness Respiratory exam: PRESENT: clear to auscultation patrice Cardiovascular exam: PRESENT: irregular rhythm. ABSENT: diastolic murmur, systolic murmur Vascular exam: PRESENT: pallor GI/Abdominal exam: PRESENT: normal bowel sounds, soft. ABSENT: tenderness Neurological exam: PRESENT: alert, awake, oriented to person, oriented to place , oriented to time, oriented to situation, CN II-XII grossly intact Psychiatric exam: PRESENT: appropriate affect Skin exam: PRESENT: pallor Results Laboratory Results: 10/29/17 05:25 10/29/17 05:25 10/28/17 10/29/17 10/29/17 21:52 05:25 05:25 WBC 8.2 RBC 2.27 L Hgb 7.3 L Hct 22.9 L MCV 101 H MCH 32.2 MCHC 31.9 L RDW 15.5 H Plt Count 77 L Seg Neutrophils % 66.9 Lymphocytes % 17.8 Monocytes % 10.4 Eosinophils % 4.3 Basophils % 0.6 Absolute Neutrophils 5.5 Absolute Lymphocytes 1.5 Absolute Monocytes 0.8 Absolute Eosinophils 0.4 Absolute Basophils 0.1 Sodium 147.5 H Potassium 5.1 H Chloride 110 H Carbon Dioxide 23 Anion Gap 15 BUN 106 H Creatinine 2.84 H Est GFR ( Amer) 26 L Est GFR (Non-Af Amer) 21 L Glucose 107 Calcium 8.8 Stool Occult Blood POSITIVE Impressions: Abdomen/Pelvis CT 10/28/17 18:40 IMPRESSION: Aortofemoral endograft. [place] aorta measures minimally larger than on previous raising the question of endovascular leak. Assessment & Plan - Diagnosis (1) Acute hypernatremia Is this a current diagnosis for this admission?: Yes Plan: Due to volume contraction (2) GI bleed Qualifiers: GI bleed type/associated pathology: unspecified gastrointestinal hemorrhage type Qualified Code(s): K92.2 - Gastrointestinal hemorrhage, unspecified Is this a current diagnosis for this admission?: Yes Plan: Family wishing procedures. Will continue Carafate and will place patient on Protonix IV. (3) Atrial fibrillation Qualifiers: Atrial fibrillation type: paroxysmal Qualified Code(s): I48.0 - Paroxysmal atrial fibrillation Is this a current diagnosis for this admission?: Yes Plan: Stable (4) Acute blood loss anemia Is this a current diagnosis for this admission?: Yes Plan: Due to acute lower gastrointestinal bleeding. To transfuse 1 unit and trend he may require another blood transfusion (5) Acute on chronic renal failure Qualifiers: Chronic kidney disease stage: stage 4 (severe) Is this a current diagnosis for this admission?: Yes Plan: Acute component due to volume contraction. Baseline around 2.05. Patient on diuretics and having poor oral intake (6) Thrombocytopenia Is this a current diagnosis for this admission?: Yes Plan: Unable to ascertain as far as the etiology of thrombocytopenia (7) CHF (congestive heart failure) Qualifiers: Heart failure type: systolic Heart failure chronicity: chronic Qualified Code(s): I50.22 - Chronic systolic (congestive) heart failure Is this a current diagnosis for this admission?: Yes Plan: At present on the dry side. Will watch since he is going to be transfused - Time Time Spent with patient: 15-24 minutes Medications reviewed and adjusted accordingly: Yes Anticipated discharge: Hospice Within: within 72 hours - Inpatient Certification Based on my medical assessment, after consideration of the patient's comorbidities, presenting symptoms, or acuity I expect that the services needed warrant INPATIENT care.: Yes I certify that my determination is in accordance with my understanding of Medicare's requirements for reasonable and necessary INPATIENT services [42 CFR 412.3e].: Yes Medical Necessity: Need Close Monitoring Due to Risk of Patient Decompensation
[2017-10-30] MEDS: SUCRALFATE SUSP 1 GM/10 ML UDCUP PO SCH ×5 (00:09→23:26)
[2017-10-30 02:34] LABS: ABSOLUTE EOSINOPHILS # (AUTO) 0.4 10^3/uL (0.0-0.6); ABSOLUTE LYMPHOCYTES (AUTO) 1.4 10^3/uL (0.5-4.7); ABSOLUTE MONOCYTES (AUTO) 0.8 10^3/uL (0.1-1.4); ABSOLUTE NEUT (AUTO) 4.4 10^3/uL (1.7-8.2); BASOPHILS % (AUTO) 0.7 % (0-2); EOSINOPHILS % (AUTO) 6.2 % (0-6); HEMATOCRIT 29.3 % (37.9-51.0); LYMPHOCYTES % (AUTO) 20.1 % (13-45); MEAN CORPUSCULAR HGB CONC 33.2 g/dL (32.0-36.0); MEAN CORPUSCULAR VOLUME 94 fl (80-97); MONOCYTES % (AUTO) 11.1 % (3-13); RED BLOOD COUNT 3.13 10^6/uL (4.35-5.55); RED CELL DISTRIBUTION WIDTH 17.4 % (11.5-14.0); SEGMENTED NEUTROPHILS % (AUTO) 61.9 % (42-78); TOTAL CELLS COUNTED % (AUTO) 100 %; WHITE BLOOD COUNT 7.1 10^3/uL (4.0-10.5)
[2017-10-30 02:42] LABS: ANION GAP 15 (5-19); BLOOD UREA NITROGEN 93 mg/dL (7-20); CALCIUM 8.4 mg/dL (8.4-10.2); CARBON DIOXIDE 20 mmol/L (22-30); CHLORIDE 108 mmol/L (98-107); GLUCOSE 100 mg/dL (75-110); POTASSIUM 4.8 mmol/L (3.6-5.0); SODIUM 143.2 mmol/L (137-145)
[2017-10-30 02:59] LABS: HEMOGLOBIN 9.7 g/dL (13.5-17.0)
[2017-10-30 03:00] LABS: PLATELET COUNT 69 10^3/uL (150-450)
[2017-10-30] MEDS: PANTOPRAZOLE SODIUM 40 MG VIAL IV SCH ×2 (05:47→17:53)
[2017-10-30] MEDS: DOCUSATE SODIUM 100 MG CAPSULE PO SCH ×2 (11:12→17:52)
--- NOTE | 2017-10-30 12:23 | PDOC CONSULTATION ---
Consultation Consult Date: 10/30/17 Attending physician:: DESTINY DUKE Consult reason:: GI bleeding History of Present Illness Admission Date/PCP: 10/28/17 21:05 PAOLO BENNETT DO History of Present Illness: BRUCE STOVER is a 87 year old male patient was admitted to the Hospitalist service patient had been seen in the past had been having painless GI bleeding and presented with anemia I spoke with the daughter who is in the room and the son, they do not wish any invasive procedures patient was started on Carafate and placed on a PPI drip he had previous procedures in [place], had diverticulosis per family history, patient has had on several occasions had to have blood transfusion patient likely had an episode of diverticular bleeding since we are not able to proceed with a definitive confirmation, that would be the best guess I do not think that it is upper GI in nature since patient would be more symptomatic he denies any pain, answers questions when he is able to hear wants to eat since he is hungry will watch his H/H no further bleeding since admission, likely has resolved Past Medical History Cardiac Medical History: Reports: Atrial Fibrillation, Myocardial Infarction, Hyperlipidema, Hypertension Denies: Coronary Artery Disease Pulmonary Medical History: Reports: Asthma, Chronic Obstructive Pulmonary Disease (COPD) Denies: Bronchitis, Pneumonia Neurological Medical History: Denies: Seizures GI Medical History: Reports: Gastroesophageal Reflux Disease, Other - GI bleed Musculoskeltal Medical History: Reports: Arthritis Psychiatric Medical History: Reports: Dementia Denies: Depression Hematology: Denies: Anemia Past Surgical History Past Surgical History: Reports: Vascular Surgery - Abdominal aortic aneurysm endovascular repair Social History Lives with: Family Smoking Status: Unknown if Ever Smoked Frequency of Alcohol Use: None Hx Recreational Drug Use: No Drugs: None Hx Prescription Drug Abuse: No - Advance Directive Resuscitation Status: Do Not Resuscitate Family History Family History: CAD Parental Family History Reviewed: Yes Children Family History Reviewed: Unknown Sibling(s) Family History Reviewed.: Unknown Medication/Allergy Home Medications: Esomeprazole Magnesium [Nexium] 40 mg PO DAILY 06/11/13 Sertraline HCl 150 mg PO DAILY 06/11/13 Atorvastatin Calcium [Lipitor 80 mg Tablet] 80 mg PO DAILY 06/04/15 Donepezil HCl 23 mg PO QPM 06/04/15 Memantine HCl 10 mg PO BID 06/04/15 Furosemide [Lasix 40 mg Tablet] 40 mg PO QAM #30 tablet 04/09/16 Metoprolol Succinate [Toprol Xl 25 mg Tab.sr] 25 mg PO DAILY #30 tab.sr.24h 04/15 Glucosam/Chondr/Collagn/Hyalur [Glucosamine & Chondroitin Cap] 2 tab PO DAILY Hydralazine HCl [Apresoline 10 mg Tablet] 10 mg PO Q12 10/28/17 Iron 65 mg PO DAILY 10/28/17 Loratadine [Claritin] 10 mg PO DAILY 10/28/17 Mirtazapine [Remeron] 7.5 mg PO DAILY 10/28/17 Quetiapine Fumarate [Seroquel] 50 mg PO QHS 10/28/17 Allergies/Adverse Reactions: No Known Allergies Allergy (Verified 10/28/17 17:50) Review of Systems Constitutional: ABSENT: fever(s), headache(s), night sweats, weakness Eyes: ABSENT: visual disturbances Nose, Mouth, and Throat: ABSENT: vertigo Cardiovascular: ABSENT: chest pain, orthropnea Respiratory: ABSENT: hemoptysis Gastrointestinal: ABSENT: dysphagia, hematemesis, melena, nausea, vomiting Genitourinary: ABSENT: dysuria, hematuria Musculoskeletal: ABSENT: deformity Neurological: ABSENT: syncope, tingling, tremor(s), vertigo Endocrine: ABSENT: polydipsia, polyphagia, polyuria Hematologic/Lymphatic: ABSENT: easy bruising Physical Exam Vital Signs: Temp Pulse Resp BP Pulse Ox 98.0 F 53 L 16 165/67 H 96 10/30/17 07:57 10/30/17 11:52 10/30/17 11:52 10/30/17 07:57 10/30/17 11:52 Intake & Output 10/29/17 10/30/17 10/31/17 06:59 06:59 06:59 Intake Total 630 1320 Output Total 0 Balance 630 1320 Weight 65.3 kg 69.2 kg General appearance: PRESENT: no acute distress, well-developed, well-nourished Head exam: PRESENT: atraumatic, normocephalic Eye exam: PRESENT: EOMI, PERRLA. ABSENT: nystagmus, periorbital swelling, scleral icterus Mouth exam: PRESENT: moist, neck supple Throat exam: ABSENT: tonsillar exudate, tonsillogmegaly Neck exam: ABSENT: meningismus, tenderness, thyromegaly Respiratory exam: PRESENT: symmetrical, unlabored. ABSENT: tachypnea, wheezes Cardiovascular exam: PRESENT: RRR, +S1, +S2 GI/Abdominal exam: PRESENT: soft. ABSENT: rebound, rigid, tenderness Extremities exam: ABSENT: joint swelling Musculoskeletal exam: PRESENT: full ROM Neurological exam: PRESENT: alert, awake Psychiatric exam: PRESENT: appropriate affect Focused psych exam: ABSENT: restlessness Skin exam: PRESENT: normal color. ABSENT: mottled, pallor, petechiae, urticaria , vesicles Results Laboratory Results: 10/30/17 02:19 10/30/17 02:19 10/29/17 10/29/17 10/30/17 14:00 17:00 02:19 WBC 6.6 RBC 2.34 L Hgb 7.5 L Hct 22.5 L MCV 96 D MCH 31.9 MCHC 33.1 RDW 16.4 H Plt Count 74 L Seg Neutrophils % 64.6 Lymphocytes % 17.1 Monocytes % 11.6 Eosinophils % 6.0 Basophils % 0.7 Absolute Neutrophils 4.3 Absolute Lymphocytes 1.1 Absolute Monocytes 0.8 Absolute Eosinophils 0.4 Absolute Basophils 0.0 Sodium 143.2 Potassium 4.8 Chloride 108 H Carbon Dioxide 20 L Anion Gap 15 BUN 93 H Creatinine 2.52 H Est GFR ( Amer) 29 L Est GFR (Non-Af Amer) 24 L Glucose 100 Calcium 8.4 Urine Color YELLOW Urine Appearance CLEAR Urine pH 5.0 Ur Specific [place] 1.014 Urine Protein NEGATIVE Urine Glucose (UA) NEGATIVE Urine Ketones NEGATIVE Urine Blood NEGATIVE Urine Nitrite NEGATIVE Ur Leukocyte Esterase NEGATIVE Urine WBC (Auto) 0 Urine RBC (Auto) 1 10/30/17 02:19 WBC 7.1 RBC 3.13 L Hgb 9.7 L D Hct 29.3 L MCV 94 MCH 31.0 MCHC 33.2 RDW 17.4 H Plt Count 69 L Seg Neutrophils % 61.9 Lymphocytes % 20.1 Monocytes % 11.1 Eosinophils % 6.2 H Basophils % 0.7 Absolute Neutrophils 4.4 Absolute Lymphocytes 1.4 Absolute Monocytes 0.8 Absolute Eosinophils 0.4 Absolute Basophils 0.0 Sodium Potassium Chloride Carbon Dioxide Anion Gap BUN Creatinine Est GFR ( Amer) Est GFR (Non-Af Amer) Glucose Calcium Urine Color Urine Appearance Urine pH Ur Specific [place] Urine Protein Urine Glucose (UA) Urine Ketones Urine Blood Urine Nitrite Ur Leukocyte Esterase Urine WBC (Auto) Urine RBC (Auto) Impressions: Abdomen/Pelvis CT 10/28/17 18:40 IMPRESSION: Aortofemoral endograft. [place] aorta measures minimally larger than on previous raising the question of endovascular leak. Assessment & Plan - Diagnosis (1) GI bleed Qualifiers: GI bleed type/associated pathology: unspecified gastrointestinal hemorrhage type Qualified Code(s): K92.2 - Gastrointestinal hemorrhage, unspecified Is this a current diagnosis for this admission?: Yes Plan: likely diverticular in nature since previous colonoscopy in [place] showed diverticulosis and is consistent with the patient's presentation and ongoing clinical course monitor H/H family does not want any invasive procedures done transfuse as necessary bleeding seems to have resolved for now differential to also include possible upper GI bleeding but patient would have been more symptomatic Radiology is also suggesting possible Endoleak with known history of aneurysm that would more of a surgical issue, since the initial presentation could present with a herald bleed ? depending on how the family wants to be, either a contrasted CT or angiogram would need to be considered spoke with family currently on clears could advance as tolerated if H/H is stable - Time Time Spent: 50 to 70 Minutes
--- NOTE | 2017-10-30 15:30 | PDOC PROGRESS REPORT ---
Subjective Progress Note for:: 10/30/17 Subjective:: No complaints. Son at bedside and stated that his sister told him that patient had diverticulosis in the past Review of systems All organ systems evaluated and negative except as in subjective All laboratories and significant diagnostics have been reviewed Reason For Visit: UPPER GI BLEED Physical Exam Vital Signs: Temp Pulse Resp BP Pulse Ox 98.2 F 38 L 18 174/69 H 98 10/30/17 04:25 10/30/17 04:25 10/30/17 04:25 10/30/17 04:25 10/30/17 04:25 Intake & Output 10/29/17 10/30/17 10/31/17 06:59 06:59 06:59 Intake Total 630 1320 Output Total 0 Balance 630 1320 Weight 65.3 kg 69.2 kg General appearance: PRESENT: no acute distress, cooperative, thin Head exam: PRESENT: atraumatic, normocephalic Eye exam: PRESENT: conjunctiva pale, EOMI, PERRLA Ear exam: PRESENT: normal external ear exam Mouth exam: PRESENT: moist Neck exam: PRESENT: full ROM. ABSENT: JVD, lymphadenopathy, tenderness Respiratory exam: PRESENT: clear to auscultation patrice Cardiovascular exam: PRESENT: irregular rhythm. ABSENT: diastolic murmur, RRR, systolic murmur Vascular exam: PRESENT: normal capillary refill GI/Abdominal exam: PRESENT: normal bowel sounds, soft. ABSENT: tenderness Extremities exam: PRESENT: full ROM. ABSENT: joint swelling Musculoskeletal exam: ABSENT: ambulatory Neurological exam: PRESENT: alert, awake, oriented to person. ABSENT: oriented to place, oriented to time, oriented to situation Psychiatric exam: PRESENT: appropriate affect, normal mood Skin exam: PRESENT: pallor Results Laboratory Results: 10/30/17 02:19 10/30/17 02:19 10/29/17 10/29/17 10/30/17 14:00 17:00 02:19 WBC 6.6 RBC 2.34 L Hgb 7.5 L Hct 22.5 L MCV 96 D MCH 31.9 MCHC 33.1 RDW 16.4 H Plt Count 74 L Seg Neutrophils % 64.6 Lymphocytes % 17.1 Monocytes % 11.6 Eosinophils % 6.0 Basophils % 0.7 Absolute Neutrophils 4.3 Absolute Lymphocytes 1.1 Absolute Monocytes 0.8 Absolute Eosinophils 0.4 Absolute Basophils 0.0 Sodium 143.2 Potassium 4.8 Chloride 108 H Carbon Dioxide 20 L Anion Gap 15 BUN 93 H Creatinine 2.52 H Est GFR ( Amer) 29 L Est GFR (Non-Af Amer) 24 L Glucose 100 Calcium 8.4 Urine Color YELLOW Urine Appearance CLEAR Urine pH 5.0 Ur Specific [place] 1.014 Urine Protein NEGATIVE Urine Glucose (UA) NEGATIVE Urine Ketones NEGATIVE Urine Blood NEGATIVE Urine Nitrite NEGATIVE Ur Leukocyte Esterase NEGATIVE Urine WBC (Auto) 0 Urine RBC (Auto) 1 10/30/17 02:19 WBC 7.1 RBC 3.13 L Hgb 9.7 L D Hct 29.3 L MCV 94 MCH 31.0 MCHC 33.2 RDW 17.4 H Plt Count 69 L Seg Neutrophils % 61.9 Lymphocytes % 20.1 Monocytes % 11.1 Eosinophils % 6.2 H Basophils % 0.7 Absolute Neutrophils 4.4 Absolute Lymphocytes 1.4 Absolute Monocytes 0.8 Absolute Eosinophils 0.4 Absolute Basophils 0.0 Sodium Potassium Chloride Carbon Dioxide Anion Gap BUN Creatinine Est GFR ( Amer) Est GFR (Non-Af Amer) Glucose Calcium Urine Color Urine Appearance Urine pH Ur Specific [place] Urine Protein Urine Glucose (UA) Urine Ketones Urine Blood Urine Nitrite Ur Leukocyte Esterase Urine WBC (Auto) Urine RBC (Auto) Impressions: Abdomen/Pelvis CT 10/28/17 18:40 IMPRESSION: Aortofemoral endograft. [place] aorta measures minimally larger than on previous raising the question of endovascular leak. Assessment & Plan - Diagnosis (1) Acute hypernatremia Is this a current diagnosis for this admission?: Yes Plan: Due to volume contraction. Resolved (2) GI bleed Qualifiers: GI bleed type/associated pathology: unspecified gastrointestinal hemorrhage type Qualified Code(s): K92.2 - Gastrointestinal hemorrhage, unspecified Is this a current diagnosis for this admission?: Yes Plan: Family wishing NO procedures. Likely due to lower gastrointestinal bleeding since history of diverticulosis. No more bleeding in the past 24 hours. Continue Protonix IV and expect to discontinue in a.m. Continue Carafate consult Dr. Rose (3) Atrial fibrillation Qualifiers: Atrial fibrillation type: paroxysmal Qualified Code(s): I48.0 - Paroxysmal atrial fibrillation Is this a current diagnosis for this admission?: Yes Plan: Stable (4) Acute blood loss anemia Is this a current diagnosis for this admission?: Yes Plan: Due to acute lower gastrointestinal bleeding. Improved after 2 units of packed red blood cells (5) Acute on chronic renal failure Qualifiers: Chronic kidney disease stage: stage 4 (severe) Is this a current diagnosis for this admission?: Yes Plan: Acute component due to volume contraction. Baseline around 2.05. Patient on diuretics as outpatient and having poor oral intake. Continue gentle hydration and trend renal function (6) Thrombocytopenia Is this a current diagnosis for this admission?: Yes Plan: Unable to ascertain as far as the etiology of thrombocytopenia. Stable (7) CHF (congestive heart failure) Qualifiers: Heart failure type: systolic Heart failure chronicity: chronic Qualified Code(s): I50.22 - Chronic systolic (congestive) heart failure Is this a current diagnosis for this admission?: Yes Plan: Continues been stable. Will watch for decompensation as gently hydrating patient - Time Time Spent with patient: 15-24 minutes Medications reviewed and adjusted accordingly: Yes Anticipated discharge: Home with Homehealth Within: within 48 hours - Inpatient Certification Based on my medical assessment, after consideration of the patient's comorbidities, presenting symptoms, or acuity I expect that the services needed warrant INPATIENT care.: Yes I certify that my determination is in accordance with my understanding of Medicare's requirements for reasonable and necessary INPATIENT services [42 CFR 412.3e].: Yes Medical Necessity: Significant Comorbidiites Make Outpatient Treatment Too Risky , Need Close Monitoring Due to Risk of Patient Decompensation
[2017-10-30] MEDS: NORMAL SALINE 1000 ML 1,000 ML IV PRN ×2 (15:55→15:57)
[2017-10-31] MEDS: SUCRALFATE SUSP 1 GM/10 ML UDCUP PO SCH ×2 (05:10→11:42)
[2017-10-31] MEDS: PANTOPRAZOLE SODIUM 40 MG VIAL IV SCH (05:10)
[2017-10-31 07:12] LABS: ABSOLUTE EOSINOPHILS # (AUTO) 0.4 10^3/uL (0.0-0.6); ABSOLUTE MONOCYTES (AUTO) 0.8 10^3/uL (0.1-1.4); ABSOLUTE NEUT (AUTO) 4.7 10^3/uL (1.7-8.2); BASOPHILS % (AUTO) 0.6 % (0-2); EOSINOPHILS % (AUTO) 5.1 % (0-6); HEMATOCRIT 27.9 % (37.9-51.0); HEMOGLOBIN 9.5 g/dL (13.5-17.0); MEAN CORPUSCULAR HEMOGLOBIN 31.7 pg (27.0-33.4); MEAN CORPUSCULAR HGB CONC 33.9 g/dL (32.0-36.0); MEAN CORPUSCULAR VOLUME 93 fl (80-97); MONOCYTES % (AUTO) 11.4 % (3-13); RED BLOOD COUNT 2.99 10^6/uL (4.35-5.55); RED CELL DISTRIBUTION WIDTH 17.2 % (11.5-14.0); SEGMENTED NEUTROPHILS % (AUTO) 67.9 % (42-78); TOTAL CELLS COUNTED % (AUTO) 100 %; WHITE BLOOD COUNT 6.9 10^3/uL (4.0-10.5)
[2017-10-31 07:32] LABS: BLOOD UREA NITROGEN 68 mg/dL (7-20); CALCIUM 8.5 mg/dL (8.4-10.2); CARBON DIOXIDE 21 mmol/L (22-30); CHLORIDE 112 mmol/L (98-107); GLUCOSE 98 mg/dL (75-110); POTASSIUM 4.1 mmol/L (3.6-5.0)
[2017-10-31 07:34] LABS: ANION GAP 12 (5-19); SODIUM 144.7 mmol/L (137-145)
[2017-10-31 08:02] LABS: PLATELET COUNT 73 10^3/uL (150-450)
[2017-10-31] MEDS: DOCUSATE SODIUM 100 MG CAPSULE PO SCH (10:42)
[2017-10-31 11:46] VITALS: BP 111/50
--- NOTE | 2017-11-01 06:29 | PDOC DISCHARGE SUMMARY ---
General - Admit/Disc Date/PCP Admission Date/Primary Care Provider: 10/28/17 21:05 PAOLO BENNETT, DO Discharge Date: 10/31/17 - Discharge Diagnosis (1) GI bleed Is this a current diagnosis for this admission?: Yes (2) Acute blood loss anemia Is this a current diagnosis for this admission?: Yes (3) Acute on chronic renal failure Is this a current diagnosis for this admission?: Yes (4) Acute hypernatremia Is this a current diagnosis for this admission?: Yes (5) Atrial fibrillation Is this a current diagnosis for this admission?: Yes (6) Thrombocytopenia Is this a current diagnosis for this admission?: Yes (7) CHF (congestive heart failure) Is this a current diagnosis for this admission?: Yes (8) History of diverticulosis Is this a current diagnosis for this admission?: Yes (9) History of peptic ulcer disease Is this a current diagnosis for this admission?: Yes (10) Hyperkalemia Is this a current diagnosis for this admission?: Yes - Additional Information Resuscitation Status: Do Not Resuscitate Discharge Diet: Regular Discharge Activity: Activity As Tolerated Prescriptions: Pantoprazole Sodium [Protonix] 40 mg PO BID #60 tablet.dr Home Medications: Esomeprazole Magnesium [Nexium] 40 mg PO DAILY 06/11/13 Sertraline HCl 150 mg PO DAILY 06/11/13 Atorvastatin Calcium [Lipitor 80 mg Tablet] 80 mg PO DAILY 06/04/15 Donepezil HCl 23 mg PO QPM 06/04/15 Memantine HCl 10 mg PO BID 06/04/15 Metoprolol Succinate [Toprol Xl 25 mg Tab.sr] 25 mg PO DAILY #30 tab.sr.24h 04/15 Glucosam/Chondr/Collagn/Hyalur [Glucosamine & Chondroitin Cap] 2 tab PO DAILY Hydralazine HCl [Apresoline 10 mg Tablet] 10 mg PO Q12 10/28/17 Iron 65 mg PO DAILY 10/28/17 Loratadine [Claritin] 10 mg PO DAILY 10/28/17 Mirtazapine [Remeron] 7.5 mg PO DAILY 10/28/17 Quetiapine Fumarate [Seroquel] 50 mg PO QHS 10/28/17 Acetaminophen [Tylenol 325 mg Tablet] 325 mg PO Q4HP PRN tablet 10/31/17 Docusate Sodium [Colace 100 mg Capsule] 100 mg PO BID capsule 10/31/17 Furosemide [Lasix 40 mg Tablet] 20 mg PO QAM #30 tablet 10/31/17 Ipratropium/Albuterol Sulfate [Duoneb 3 ml Ampul] 3 ml NEB [id number] PRN vial.[facility] 10/31/17 Magnesium Hydroxide [Milk of Magnesia 30 ml Udcup] 30 ml PO HSP PRN udc Pantoprazole Sodium [Protonix] 40 mg PO BID #60 tablet. 10/31/17 History of Present Illness History of Present Illness: BRUCE STOVER is a 87 year old male with a history of GI bleed, atrial fibrillation, congestive heart failure ejection fraction 20%, coronary artery disease abdominal aortic aneurysm, COPD and CVA with advanced dementia. He presented with 12 hours of abdominal pain and blood per rectum and brought to the emergency room by his son for evaluation. He was found to have heme positive stool and anemia with hemoglobin of 8.6. He was started on IV Protonix and referred to the hospitalist for admission. The patient son verified CODE STATUS which is DNR and conservative management only. No endoscopy or colonoscopy given patient's wishes. Hospital Course Hospital Course: Patient was admitted to the hospitalist service with an impression of gastrointestinal bleeding. Patient does have a history of both diverticulosis and peptic ulcer disease. We consulted Dr. Rose and again family did not want any further intervention. It was Dr. Rose's impression that likely bleeding episode related to a diverticular bleed. Patient required transfusion of 2 units of packed red blood cells and tolerated procedure well without exacerbation of chronic systolic congestive heart failure. On initial presentation patient presented with acute kidney injury which related to volume contraction in the setting of poor oral intake and diuretic use. Kidney functions were trending down when compared to admission with gentle hydration, transfusions and holding off diuretic. Hypernatremia related to volume contraction and improved. Patient's son had been advised to follow-up with PCP to follow through in this regard. The author opted on discharge to cut down Lasix 40 mg to 20 mg p.o. daily. Patient was also discharged on PPI due to history of peptic ulcer disease. Patient was tolerating oral intake. Since stable and achieved maximum benefit of hospitalization prompted to discharge Physical Exam Vital Signs: Temp Pulse Resp BP Pulse Ox 98.0 F 57 L 17 155/52 H 99 10/31/17 08:11 10/31/17 08:11 10/31/17 04:27 10/31/17 08:11 10/31/17 08:11 Intake & Output 10/30/17 10/31/17 11/01/17 06:59 06:59 06:59 Intake Total 1320 4853 Output Total 0 Balance 1320 4853 Weight 69.2 kg 71.5 kg General appearance: PRESENT: no acute distress, cooperative, thin Head exam: PRESENT: atraumatic, normocephalic Eye exam: PRESENT: conjunctiva pink, EOMI, PERRLA Ear exam: PRESENT: normal external ear exam Mouth exam: PRESENT: moist Neck exam: PRESENT: full ROM. ABSENT: JVD, lymphadenopathy, tenderness, thyromegaly Respiratory exam: PRESENT: clear to auscultation patrice Cardiovascular exam: PRESENT: irregular rhythm. ABSENT: diastolic murmur, systolic murmur Vascular exam: PRESENT: normal capillary refill GI/Abdominal exam: PRESENT: normal bowel sounds, soft. ABSENT: tenderness Extremities exam: PRESENT: full ROM. ABSENT: pedal edema Musculoskeletal exam: PRESENT: ambulatory Neurological exam: PRESENT: alert, awake, oriented to person Psychiatric exam: PRESENT: appropriate affect, normal mood Skin exam: PRESENT: normal color Results Laboratory Results: 10/31/17 06:27 10/31/17 06:27 10/30/17 10/31/17 10/31/17 02:19 06:27 06:27 WBC 6.9 RBC 2.99 L Hgb 9.5 L Hct 27.9 L MCV 93 MCH 31.7 MCHC 33.9 RDW 17.2 H Plt Count 73 L Seg Neutrophils % 67.9 Lymphocytes % 15.0 Monocytes % 11.4 Eosinophils % 5.1 Basophils % 0.6 Absolute Neutrophils 4.7 Absolute Lymphocytes 1.0 Absolute Monocytes 0.8 Absolute Eosinophils 0.4 Absolute Basophils 0.0 Sodium 144.7 Potassium 4.1 Chloride 112 H Carbon Dioxide 21 L Anion Gap 12 BUN 68 H Creatinine 2.02 H Est GFR ( Amer) 38 L Est GFR (Non-Af Amer) 31 L Glucose 98 Calcium 8.5 Magnesium 2.0 Impressions: Abdomen/Pelvis CT 10/28/17 18:40 IMPRESSION: Aortofemoral endograft. [place] aorta measures minimally larger than on previous raising the question of endovascular leak. Qualifiers - * PATIENT BEING DISCHARGED WITH ANY OF THE FOLLOWING DIAGNOSIS: No Plan Discharge Plan: Discharge home with home health Time Spent: Greater than 30 Minutes
== END 2017-10-31 12:00 | disposition home health service (06) | DRG 377 ==
LOC: ER 17:27 → EH 21:05 → 4S 22:33
PROVIDERS: ADMIT Internal Medicine; ATTEND Internal Medicine
PROC: 30233N1 Transfusion of Nonautologous Red Blood Cells into Peripheral Vein, Percutaneous Approach (ICD-10-PCS; principal; 2017-10-29)
PROC: 3E0F73Z Introduction of Anti-inflammatory into Respiratory Tract, Via Natural or Artificial Opening (ICD-10-PCS; 2017-10-29)
DX: K57.31 Diverticulosis of large intestine without perforation or abscess with bleeding (principal); I50.23 Acute on chronic systolic (congestive) heart failure; D62 Acute posthemorrhagic anemia; N17.9 Acute kidney failure, unspecified; E87.0 Hyperosmolality and hypernatremia; I13.0 Hypertensive heart and chronic kidney disease with heart failure and stage 1 through stage 4 chronic kidney disease, or unspecified chronic kidney disease; N18.4 Chronic kidney disease, stage 4 (severe); Z66 Do not resuscitate; I48.0 Paroxysmal atrial fibrillation; D69.6 Thrombocytopenia, unspecified; E87.5 Hyperkalemia; I25.10 Atherosclerotic heart disease of native coronary artery without angina pectoris; I71.4 Abdominal aortic aneurysm, without rupture; J44.9 Chronic obstructive pulmonary disease, unspecified; F03.90 Unspecified dementia, unspecified severity, without behavioral disturbance, psychotic disturbance, mood disturbance, and anxiety; E78.00 Pure hypercholesterolemia, unspecified; K21.9 Gastro-esophageal reflux disease without esophagitis; M19.90 Unspecified osteoarthritis, unspecified site; I25.2 Old myocardial infarction; Z87.11 Personal history of peptic ulcer disease; Z79.899 Other long term (current) drug therapy; Z86.73 Personal history of transient ischemic attack (TIA), and cerebral infarction without residual deficits; Z82.49 Family history of ischemic heart disease and other diseases of the circulatory system
CPT/HCPCS: 36415; 36430; 74176; 80048; 80053; 81001; 82272; 83735; 85025; 85610; 86850; 86900; 86901; 86920; 99285; G8978-GP; G8979-GP; G8996-GN; G8997-GN; G8998-GN; J7030; J7050; P9016; S0164